=== PATIENT | female | born 2005 | race Caucasian/White ===

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

== ENCOUNTER → 2025-02-25 | Outpatient (CLI) | payer OTHER | END | disposition home or self-care (01) | LOC: ORTHO 02:04 | PROVIDERS: ATTEND Orthopaedic Surgery | DX: M25.572 Pain in left ankle and joints of left foot (principal) ==

== ENCOUNTER → 2025-03-07 | Outpatient (CLI) | payer OTHER | END | disposition home or self-care (01) | LOC: MRI 12:15 | PROVIDERS: ATTEND Orthopaedic Surgery | DX: M25.572 Pain in left ankle and joints of left foot (principal) ==

== ENCOUNTER 2025-06-11 21:41 | Emergency (ER) | payer OTHER ==
[~2025-06-11] VITALS: Ht 350.5 cm; Wt 99.8 kg
[2025-06-11] MEDS ORDERED: LEVOTHYROXINE100 MC1 PO (21:54)
[2025-06-11] MEDS ORDERED: MELOXICAM15 MG PO (23:17)
== END 2025-06-11 23:23 | disposition home or self-care (01) ==
LOC: ED 21:41
DX: S80.12XA Contusion of left lower leg, initial encounter (principal); S80.11XA Contusion of right lower leg, initial encounter; Z79.899 Other long term (current) drug therapy; V89.2XXA Person injured in unspecified motor-vehicle accident, traffic, initial encounter; Y93.89 Activity, other specified; Y92.89 Other specified places as the place of occurrence of the external cause; Y99.8 Other external cause status